=== PATIENT | female | born 1980 | race Two or more races ===

== ENCOUNTER 2020-05-16 16:24 | Observation (INO) | payer MEDICAID ==
[~2020-05-16] VITALS: Ht 162.6 cm; Wt 97.5 kg
[2020-05-16] MEDS ORDERED: LACTATED RINGERS 1,000 ML IV SCH (16:46)
[2020-05-16] MEDS ORDERED: DEXT 5%/LR + PITOCIN 20UNITS/L 1,000 ML IV SCH (16:46)
[2020-05-16] MEDS ORDERED: NALOXONE HCL 0.4 MG/ML 1ML VIAL IM PRN (17:00)
[2020-05-16] MEDS ORDERED: CARBOPROST TROMETHAMINE 250 MCG/ML AMPUL IM PRN (17:00)
[2020-05-16] MEDS ORDERED: METHYLERGONOVINE MALEATE 0.2 MG/ML IM PRN (17:00)
[2020-05-16] MEDS ORDERED: LIDOCAINE HCL 1% 20ML VIAL (Pyxis) INJ INFIL SCH (17:00)
[2020-05-16] MEDS ORDERED: BUTORPHANOL TARTRATE 2 MG/ML VIAL IV PRN (17:00)
[2020-05-16] MEDS ORDERED: MISOPROSTOL 100MCG TABLET VG SCH (17:00)
[2020-05-16] MEDS ORDERED: PREN1TAB78 PO (20:24)
[2020-05-16] MEDS ORDERED: CALC600T12 PO (20:24)
[2020-05-16] MEDS ORDERED: FERR-71 PO (20:24)
== END 2020-05-16 20:37 | disposition home or self-care (01) ==
LOC: 8 EST LDRP 16:24 → OBSVTOIN 16:24 → INTOOBSV 16:24 → 8 EST LDRP 16:42
PROVIDERS: ADMIT Obstetrics & Gynecology; ATTEND Obstetrics & Gynecology
DX: O09.523 Supervision of elderly multigravida, third trimester (principal); Z3A.40 40 weeks gestation of pregnancy
CPT/HCPCS: 59025; 76805; 76817; 76818; G0378; 99281

== ENCOUNTER 2020-05-18 16:09 | Inpatient (IN) | payer MEDICAID ==
[~2020-05-18] VITALS: Ht 162.6 cm; Wt 102.1 kg
[~2020-05-18 16:09] MED LIST: CALC600T12 PO; FERR-71 PO; PREN1TAB78 PO
[2020-05-18] MEDS ORDERED: DEXT 5%/LR + PITOCIN 20UNITS/L 1,000 ML IV SCH (18:02)
[2020-05-18] MEDS ORDERED: METHYLERGONOVINE MALEATE 0.2 MG/ML IM PRN (18:15)
[2020-05-18] MEDS ORDERED: CARBOPROST TROMETHAMINE 250 MCG/ML AMPUL IM PRN (18:15)
[2020-05-18] MEDS ORDERED: MISOPROSTOL 100MCG TABLET VG SCH (18:15)
[2020-05-18] MEDS ORDERED: NALOXONE HCL 0.4 MG/ML 1ML VIAL IM PRN (18:15)
[2020-05-18] MEDS: LACTATED RINGERS 1,000 ML IV SCH ×3 (19:35→22:14)
[2020-05-18 20:45] LABS: CLARITY URINE CLEAR (CLEAR); COLOR URINE YELLOW (YELLOW); KETONES URINE NEGATIVE (NEGATIVE); LEUKOCYTE ESTERASE URINE TRACE (NEGATIVE); NITRITE URINE NEGATIVE (NEGATIVE); OCCULT BLOOD URINE NEGATIVE (NEGATIVE); PROTEIN URINE NEGATIVE (NEGATIVE); SPECIFIC GRAVITY URINE 1.011 (1.005-1.030)
[2020-05-18 20:58] LABS: *BARBITURATES SCREEN URINE NEGATIVE (NEGATIVE)
[2020-05-18 20:59] LABS: *AMPHETAMINES SCREEN URINE NEGATIVE (NEGATIVE); *BENZODIAZEPINES SCREEN URINE NEGATIVE (NEGATIVE); *COCAINE SCREEN URINE NEGATIVE (NEGATIVE); METHADONE URINE SCREEN NEGATIVE (NEGATIVE); OPIATES URINE SCREEN NEGATIVE (NEGATIVE); PHENCYCLIDINE URINE SCREEN NEGATIVE (NEGATIVE)
[2020-05-18 21:00] LABS: CANNABINOID URINE SCREEN NEGATIVE (NEGATIVE)
[2020-05-18 22:04] LABS: BASOPHILS % 0.3 % (0.0-2.0); EOSINOPHILS % 1.3 % (0.0-5.0); HEMATOCRIT. 30.8 % (36.0-48.0); HEMOGLOBIN. 10.5 g/dL (12.0-16.0); LYMPHOCYTES % 18.6 % (20.0-50.0); MEAN CORPUSCULAR HEMOGLOBIN 32.1 pg (28.0-32.0); MEAN CORPUSCULAR VOLUME 93.7 fL (81.0-99.0); MEAN PLATELET VOLUME 10.7 fl (7.4-10.4); MONOCYTES % 10.1 % (2.0-8.0); NEUTROPHILS % 69.7 % (40.0-76.0); PLATELET 191 x1000/uL (130-400); RED BLOOD CELL COUNT 3.29 mill/uL (4.2-5.4)
[2020-05-18 22:11] LABS: INR 0.9; PARTIAL THROMBOPLASTIN TIME 30.9 sec (23.4-31.0); PROTHROMBIN TIME 9.9 sec (9.6-11.0)
[2020-05-18 22:43] LABS: HEPATITIS B SURFACE ANTIGEN NEGATIVE
[2020-05-18] MEDS ORDERED: MORPHINE SULFATE/PF 1MG/ML 10ML AMP ONE (23:06)
[2020-05-18] MEDS ORDERED: FENTANYL CITRATE/PF 50MCG/ML 2ML VIAL ONE (23:06)
[2020-05-18] MEDS ORDERED: OXYTOCIN 10 UNITS/ML 1ML ONE (23:06)
[2020-05-18] MEDS ORDERED: CEFAZOLIN SODIUM 1000MG/VIAL ONE (23:06)
[2020-05-18] MEDS ORDERED: SODIUM CHLORIDE 0.9% 10ML VIAL ONE (23:06)
[2020-05-18] MEDS ORDERED: ONDANSETRON HCL 4MG/2ML INJ ONE (23:07)
[2020-05-18] MEDS ORDERED: METOCLOPRAMIDE HCL 10MG/2ML VIAL ONE (23:07)
[2020-05-19] MEDS: LACTATED RINGERS 1,000 ML IV SCH (01:10)
[2020-05-19] MEDS ORDERED: HEMORRHOIDAL SUPP PR PRN (01:15)
[2020-05-19] MEDS ORDERED: DIPHENHYDRAMINE 25MG CAPSULE PO PRN (01:15)
[2020-05-19] MEDS ORDERED: BISACODYL 10MG SUPP PR PRN (01:15)
[2020-05-19] MEDS ORDERED: HYDROCODONE/ACETAMINOPHEN 5/325MG TABLET PO PRN (01:15)
[2020-05-19] MEDS ORDERED: ONDANSETRON HCL 4MG/2ML INJ IV PRN (01:15)
[2020-05-19] MEDS ORDERED: IBUPROFEN 400MG TABLET PO PRN (01:15)
[2020-05-19] MEDS ORDERED: LANOLIN OINT 7GM TUBE TOP PRN (01:15)
[2020-05-19 02:30] VITALS: BP 113/59
[2020-05-19 03:00] VITALS: BP 113/61
[2020-05-19 04:00] VITALS: BP 105/60
[2020-05-19 07:30] VITALS: BP 103/50
[2020-05-19] MEDS: MAGNESIUM/ALUMINUM HYDROXIDE/SIMETHICONE 30ML UDC PO SCH ×3 (07:30→21:08)
[2020-05-19] MEDS: SIMETHICONE 80MG TABLET CHEW PO SCH ×3 (08:00→21:09)
[2020-05-19] MEDS: DEXT 5%/LR + PITOCIN 20UNITS/L 1,000 ML IV SCH ×2 (11:55→19:42)
[2020-05-19 15:19] VITALS: BP 102/64
[2020-05-19] MEDS ORDERED: KETOROLAC 30MG/ML VIAL IV PRN (15:30)
[2020-05-19 19:30] VITALS: BP 102/63
[2020-05-19] MEDS: DOCUSATE SODIUM 100MG CAPSULE PO SCH (21:09)
[2020-05-20] VITALS: BP 100/70
[2020-05-20 04:00] VITALS: BP 113/53
[2020-05-20 06:32] LABS: BASOPHILS % 0.4 % (0.0-2.0); EOSINOPHILS % 1.3 % (0.0-5.0); HEMOGLOBIN. 9.3 g/dL (12.0-16.0); LYMPHOCYTES % 8.6 % (20.0-50.0); MEAN CORPUSCULAR HEMOGLOBIN 32.1 pg (28.0-32.0); MEAN CORPUSCULAR VOLUME 93.2 fL (81.0-99.0); MEAN PLATELET VOLUME 10.2 fl (7.4-10.4); MONOCYTES % 10.6 % (2.0-8.0); NEUTROPHILS % 79.1 % (40.0-76.0); PLATELET 160 x1000/uL (130-400); RED CELL DISTRIBUTION WIDTH 13.9 % (11.6-14.6)
[2020-05-20 08:00] VITALS: BP 117/60
[2020-05-20] MEDS: IBUPROFEN 800MG TABLET PO PRN ×2 (08:01→19:02)
[2020-05-20] MEDS: FERROUS SULFATE 325MG TABLET PO SCH ×3 (09:20→19:01)
[2020-05-20] MEDS: MAGNESIUM/ALUMINUM HYDROXIDE/SIMETHICONE 30ML UDC PO SCH ×4 (09:20→20:33)
[2020-05-20] MEDS: SIMETHICONE 80MG TABLET CHEW PO SCH ×4 (09:21→20:34)
[2020-05-20 16:00] VITALS: BP 115/65
[2020-05-20 19:30] VITALS: BP 115/67
[2020-05-20] MEDS: DOCUSATE SODIUM 100MG CAPSULE PO SCH (20:34)
[2020-05-21 04:00] VITALS: BP 121/73
[2020-05-21] MEDS ORDERED: IBUP-2030 PO (06:07)
[2020-05-21 07:45] VITALS: BP 108/54
[2020-05-21] MEDS: FERROUS SULFATE 325MG TABLET PO SCH (09:08)
[2020-05-21] MEDS: MAGNESIUM/ALUMINUM HYDROXIDE/SIMETHICONE 30ML UDC PO SCH (09:08)
[2020-05-21] MEDS: SIMETHICONE 80MG TABLET CHEW PO SCH (09:09)
== END 2020-05-21 13:20 | disposition home or self-care (01) | DRG 540 ==
LOC: OBSVTOIN 16:09 → 8 EST LDRP 16:09 → 8EST 05-19 02:25 → UNDODISIN 05-20 17:30
PROVIDERS: ADMIT Obstetrics & Gynecology; ATTEND Obstetrics & Gynecology
PROC: 10D00Z1 Extraction of Products of Conception, Low, Open Approach (ICD-10-PCS; principal; 2020-05-19)
PROC: 0UB70ZZ Excision of Bilateral Fallopian Tubes, Open Approach (ICD-10-PCS; 2020-05-19)
DX: O34.211 Maternal care for low transverse scar from previous cesarean delivery (principal); Z37.0 Single live birth; Z3A.40 40 weeks gestation of pregnancy; Z30.2 Encounter for sterilization; O90.81 Anemia of the puerperium; Z79.899 Other long term (current) drug therapy
CPT/HCPCS: 36415; 76815; 76818; 80305; 81003; 85025; 86592; 86703; 86762; 86850; 86900; 86920; 87340; 88307; 99281; J0690; J2274; J2405; J2590; J2765; J3010